=== PATIENT | male | born 1945 | race Caucasian/White ===

== ENCOUNTER 2018-08-21 07:42 | Emergency (ER) | payer MEDICARE, OTHER ==
[2018-08-21 08:01] VITALS: BP 168/105
--- NOTE | 2018-08-21 08:21 | EDM.PDOC ---
ED HPI GENERAL MEDICAL PROBLEM - General Chief Complaint: Bite:Animal, Insect Stated Complaint: SPIDER BITE ON LEG Time Seen by Provider: 08/21/18 08:05 Source of Information: Reports: Patient, Family History Limitations: Reports: No Limitations - History of Present Illness INITIAL COMMENTS - FREE TEXT/NARRATIVE: 73-year-old male with some type of a bite on the inner aspect of his left lower leg is becoming more inflamed over the past 4 or 5 days. He has a history of a significant extremity infection from a bite in the past where he needed hospitalization and they're concerned it may progress. He has no fevers or chills. No nausea or vomiting. Onset: Gradual Duration: Day(s): (6 days) Location: Reports: Lower Extremity, Left Associated Symptoms: Denies: Confusion, Fever/Chills, Headaches - Related Data Allergies Allergy/AdvReac Type Severity Reaction Status Date / Time niacin Allergy Mild flushing Verified 08/21/18 08:02 atorvastatin calcium Allergy Leg Cramps Verified 08/21/18 08:02 [From Lipitor] Home Meds: Home Meds Losartan Potassium 100 mg PO BID 07/23/13 [History] Prevalite 1 pack PO BID 07/04/15 [History] Rosuvastatin [Crestor] 5 mg PO BEDTIME 08/21/18 [History] Past Medical History HEENT History: Reports: Impaired Vision Cardiovascular History: Reports: High Cholesterol, Hypertension Gastrointestinal History: Reports: None Genitourinary History: Reports: None Musculoskeletal History: Reports: Arthritis Psychiatric History: Reports: Depression Oncologic (Cancer) History: Reports: Squamous Cell Carcinoma Dermatologic History: Reports: Benign Melanoma, Other (See Below) - Past Surgical History Head Surgeries/Procedures: Reports: None HEENT Surgical History: Reports: Tonsillectomy Cardiovascular Surgical History: Reports: None GI Surgical History: Reports: Appendectomy, Colonoscopy, Other (See Below) Male Surgical History: Reports: TURP-Transurethral Resection of Prostate Musculoskeletal Surgical History: Reports: Shoulder Surgery, Other (See Below) Other Musculoskeletal Surgeries/Procedures:: hx of left knee injury Oncologic Surgical History: Reports: None Dermatological Surgical History: Reports: Skin Biopsy Social & Family History - Tobacco Use Smoking Status *Q: Never Smoker - Caffeine Use Caffeine Use: Reports: Soda, Tea - Recreational Drug Use Recreational Drug Use: No ED ROS GENERAL - Review of Systems Review Of Systems: See Below Constitutional: Denies: Fever, Chills, Malaise Respiratory: Denies: Shortness of Breath Cardiovascular: Denies: Chest Pain GI/Abdominal: Denies: Abdominal Pain, Nausea, Vomiting Neurological: Denies: Headache ED EXAM, ANIMAL BITE - Physical Exam Exam: See Below Exam Limited By: No Limitations General Appearance: Alert, No Apparent Distress Respiratory/Chest: No Respiratory Distress Cardiovascular: Regular Rate, Rhythm Extremities: Other (On the left lower extremity there is a 2 x 3 cm area of erythema and inflammation with a small necrotic center) Neurological: Alert, Oriented Psychiatric: Normal Affect, Normal Mood Course - Vital Signs Last Recorded V/S: Last Vital Signs Temp 97.8 F 08/21/18 08:04 Pulse 57 L 08/21/18 08:04 Resp 16 08/21/18 08:04 BP 168/105 H 08/21/18 08:04 Pulse Ox 99 08/21/18 08:04 - Re-Assessments/Exams Free Text/Narrative Re-Assessment/Exam: 08/21/18 08:20 Insect bite left leg with early cellulitis appears to be occurring. With the patient's history and strong level of concern, he'll be placed on 300 mg of clindamycin 3 times a day for 5 days. Keep the wound clean and return if worsening over the next 48-72 hours. Departure - Departure Time of Disposition: 08:29 Disposition: Home, Self-Care 01 Condition: Good Clinical Impression: Insect bite of leg, left Qualifiers: Encounter type: initial encounter Qualified Code(s): S80.862A - Insect bite ( nonvenomous), left lower leg, initial encounter - Discharge Information Instructions: Insect Bite, Adult, [id number] Referrals: South Suarez MD [Primary Care Provider] - Forms: ED Department Discharge Care Plan Goals: Take 2 pills of antibiotic 3 times a day until gone, a total of 5 days and keep wound clean while healing. Recheck in 2-3 days if not improving satisfactorily or any time if worsening despite treatment.
== END 2018-08-21 08:29 | disposition home or self-care (01) ==
LOC: JP.ED 07:42
DX: S80.862A Insect bite (nonvenomous), left lower leg, initial encounter (principal); E78.00 Pure hypercholesterolemia, unspecified; I10 Essential (primary) hypertension; F32.9 Major depressive disorder, single episode, unspecified; Z79.899 Other long term (current) drug therapy; Z88.8 Allergy status to other drugs, medicaments and biological substances; W57.XXXA Bitten or stung by nonvenomous insect and other nonvenomous arthropods, initial encounter
CPT/HCPCS: 99282; 99283